=== PATIENT | female | born 1950 | race Caucasian/White ===

== ENCOUNTER → 2018-12-09 | Outpatient (CLI) | payer MEDICARE ==
[2018-12-09 11:23] LABS: Basophils # (A) 0.1 k/uL (0-0.2); Basophils % (A) 1 %; Eosinophils # (A) 0.2 k/uL (0-0.7); Eosinophils % (A) 4 %; HCT 45.7 % (34.0-46.0); HGB 14.4 gm/dL (11.4-16.0); Lymphocytes # (A) 2.3 k/uL (1.0-4.8); Lymphocytes % (A) 34 %; MCH 28.1 pg (25.0-35.0); MCHC 31.4 g/dL (31.0-37.0); MCV 89.7 fL (80.0-100.0); Mean Platelet Volume 6.3; Monocytes # (A) 0.3 k/uL (0-1.0); Monocytes % (A) 5 %; Neutrophils # (A) 3.7 k/uL (1.3-7.7); Neutrophils % (A) 55 %; Platelet Count 357 k/uL (150-450); WBC 6.7 k/uL (3.8-10.6)
[2018-12-09 18:34] LABS: CA27.29 Breast Ca Marker 7.3 U/mL (0.0-38.5)
[2018-12-10 09:13] LABS: Potassium 5.5
[2018-12-10 09:14] LABS: Anion Gap 7.6; Carbon Dioxide 26.4
[2018-12-10 09:35] LABS: Calcium 10.6
[2018-12-10 09:36] LABS: Albumin 4.9; Globulin 2.1
[2018-12-10 09:37] LABS: Albumin/Globulin Ratio 2.33
[2018-12-10 09:39] LABS: Total Bilirubin 0.3
== END | disposition home or self-care (01) ==
LOC: LABWHC1 10:09
PROVIDERS: ATTEND Internal Medicine Hematology & Oncology
DX: C50.211 Malignant neoplasm of upper-inner quadrant of right female breast (principal); C50.411 Malignant neoplasm of upper-outer quadrant of right female breast
CPT/HCPCS: 36415; 80053; 85025; 86300

== ENCOUNTER 2022-09-21 12:48 | Emergency (ER) | payer MEDICARE ==
[2022-09-21 13:39] LABS: Basophils # (A) 0.1 k/uL (0-0.2); Basophils % (A) 1 %; Eosinophils # (A) 0.4 k/uL (0-0.7); Eosinophils % (A) 5 %; HCT 42.4 % (34.0-46.0); HGB 14.1 gm/dL (11.4-16.0); Lymphocytes # (A) 2.4 k/uL (1.0-4.8); Lymphocytes % (A) 31 %; MCH 29.5 pg (25.0-35.0); MCHC 33.2 g/dL (31.0-37.0); MCV 88.6 fL (80.0-100.0); Mean Platelet Volume 7.9; Monocytes # (A) 0.4 k/uL (0-1.0); Monocytes % (A) 6 %; Neutrophils # (A) 4.2 k/uL (1.3-7.7); Neutrophils % (A) 55 %; Platelet Count 373 k/uL (150-450); RBC 4.78 m/uL (3.80-5.40); RDW 13.4 % (11.5-15.5); WBC 7.6 k/uL (3.8-10.6)
[2022-09-21 13:44] LABS: Albumin 4.5 g/dL (3.5-5.0); Calcium 9.5 mg/dL (8.4-10.2); Potassium 4.7 mmol/L (3.5-5.1); Total Bilirubin 0.8 mg/dL (0.2-1.3); Total Protein 7.2 g/dL (6.3-8.2)
--- NOTE | 2022-09-21 13:48 | XR ---
EXAMINATION TYPE: XR chest 2V DATE OF EXAM: 09/21/2022 COMPARISON: NONE HISTORY: Shortness of breath TECHNIQUE: Frontal and lateral views of the chest are obtained. FINDINGS: Scattered senescent parenchymal changes noted. Hyperinflation compatible with COPD. No evidence for infiltrate. No evidence for atelectasis. Heart size is stable. Right paratracheal soft tissue density could reflect a thyroid mass, ectatic vasculature however unde rlying pulmonary mass is not excluded. CT chest can be obtained on a nonemergent basis. No evidence for hilar prominence. Degenerative changes dorsal spine. IMPRESSION: 1. Right paratracheal soft tissue density could reflect a thyroid mass or ectatic vasculature however underlying pulmonary mass is not excluded. CT chest can be obtained on a nonemergent basis.
--- NOTE | 2022-09-21 13:57 | ED ---
General Adult HPI - General Chief complaint: Chest Pain Stated complaint: abn EKG, chest discomfort Time Seen by Provider: 09/21/22 13:10 Source: patient, family, RN notes reviewed, old records reviewed Mode of arrival: wheelchair Limitations: no limitations - History of Present Illness Initial comments: This is a 71-year-old female with a past medical history significant for diabetes migraines and gastric reflux. Patient states she is here today because the urgent care center in. Patient states she has been nauseated just about every day for the last 3 weeks she states the nausea comes on when she gets very sweaty and occasionally lightheaded. Patient denies any chest pain to me even on the triage note mentions chest pain I asked the patient at least 3 times she denies any chest pain any shortness of breath any palpitations. Patient denies any recent fever chills or cough. Patient states sometimes nausea gets so bad she does vomit but not a lot. Patient denies any diarrhea. Patient denies any abdominal pain. Patient states sometimes when she gets gastric reflux she does get nauseated but this is so consistent she was worried about it so she went to the urgent care. Patient currently has no nausea - Related Data Previous Rx's Medication Instructions Recorded Ondansetron [Zofran] 4 mg PO Q8HR PRN #10 tab 09/21/22 Allergies Allergy/AdvReac Type Severity Reaction Status Date / Time Sulfa (Sulfonamide Allergy Rash/Hives Verified 09/21/22 13:00 Antibiotics) Review of Systems ROS Statement: Those systems with pertinent positive or pertinent negative responses have been documented in the HPI. ROS Other: All systems not noted in ROS Statement are negative. Past Medical History Past Medical History: Asthma, Cancer, Diabetes Mellitus Additional Past Medical History / Comment(s): barretts esophagus, migraines History of Any Multi-Drug Resistant Organisms: None Reported Past Surgical History: Section, Cholecystectomy Additional Past Surgical History / Comment(s): right masectomy Past Psychological History: No Psychological Hx Reported Smoking Status: Former smoker Past Alcohol Use History: None Reported Past Drug Use History: None Reported General Exam - General Exam Comments Initial Comments: GENERAL: Patient is well-developed and well-nourished. Patient is nontoxic and well- hydrated and is in mild distress. ENT: Neck is soft and supple. No significant lymphadenopathy is noted. Oropharynx is clear. Moist mucous membranes. Neck has full range of motion without eliciting any pain. EYES: The sclera were anicteric and conjunctiva were pink and moist. Extraocular movements were intact and pupils were equal round and reactive to light. Eyelids were unremarkable. PULMONARY: Unlabored respirations. Good breath sounds bilaterally. No audible rales rhonchi or wheezing was noted. CARDIOVASCULAR: There is a regular rate and rhythm without any murmurs gallops or rubs. ABDOMEN: Soft and nontender with normal bowel sounds. SKIN: Skin is clear with no lesions or rashes and otherwise unremarkable. NEUROLOGIC: Patient is alert and oriented x3. Cranial nerves II through XII are grossly intact. Motor and sensory are also intact. Normal speech, volume and content. Symmetrical smile. MUSCULOSKELETAL: Normal extremities with adequate strength and full range of motion. No lower extremity swelling or edema. No calf tenderness. LYMPHATICS: No significant lymphadenopathy is noted PSYCHIATRIC: Normal psychiatric evaluation. Limitations: no limitations Course Vital Signs 09/21/22 09/21/22 09/21/22 12:55 12:59 14:52 Temperature 98 F Pulse Rate 66 60 75 Respiratory 16 18 18 Rate Blood Pressure 194/83 145/90 160/81 O2 Sat by Pulse 99 100 96 Oximetry Medical Decision Making - Medical Decision Making EKG is interpreted by me. EKG shows sinus bradycardia 58 bpm AK interval 266 dresses 84 QT interval 02/01/1970 QTC is 424. Patient's EKG shows no ST segment elevation or depression. Chest x-ray is interpreted by me. Chest x-ray showed a soft tissue area up and the thyroid region which I informed the patient of and she will follow supple to palpation. Patient's magnesium was slightly low I gave the patient some magnesium in the emergency department. Patient also received Zofran because she became nauseous and the emergency department. - Lab Data Result diagrams: 09/21/22 13:26 09/21/22 13:26 Lab Results 09/21/22 09/21/22 09/21/22 Range/Units 13:26 13:26 13:26 WBC 7.6 (3.8-10.6) k/uL RBC 4.78 (3.80-5.40) m/uL Hgb 14.1 (11.4-16.0) gm/dL Hct 42.4 (34.0-46.0) % MCV 88.6 (80.0-100.0) fL MCH 29.5 (25.0-35.0) pg MCHC 33.2 (31.0-37.0) g/dL RDW 13.4 (11.5-15.5) % Plt Count 373 (150-450) k/uL MPV 7.9 Neutrophils % 55 % Lymphocytes % 31 % Monocytes % 6 % Eosinophils % 5 % Basophils % 1 % Neutrophils # 4.2 (1.3-7.7) k/uL Lymphocytes # 2.4 (1.0-4.8) k/uL Monocytes # 0.4 (0-1.0) k/uL Eosinophils # 0.4 (0-0.7) k/uL Basophils # 0.1 (0-0.2) k/uL PT 10.3 (9.0-12.0) sec INR 1.0 (<1.2) APTT 22.9 (22.0-30.0) sec Sodium 138 (137-145) mmol/L Potassium 4.7 (3.5-5.1) mmol/L Chloride 107 (98-107) mmol/L Carbon Dioxide 21 L (22-30) mmol/L Anion Gap 10 mmol/L BUN 21 H (7-17) mg/dL Creatinine 0.88 (0.52-1.04) mg/dL Est GFR (CKD-EPI)AfAm 78 (>60 ml/min/1.73 sqM) Est GFR (CKD-EPI)NonAf 68 (>60 ml/min/1.73 sqM) Glucose 135 H (74-99) mg/dL Calcium 9.5 (8.4-10.2) mg/dL Magnesium (1.6-2.3) mg/dL Total Bilirubin 0.8 (0.2-1.3) mg/dL AST 22 (14-36) U/L ALT 28 (4-34) U/L Alkaline Phosphatase 80 (38-126) U/L Troponin I (0.000-0.034) ng/mL NT-Pro-B Natriuret Pep pg/mL Total Protein 7.2 (6.3-8.2) g/dL Albumin 4.5 (3.5-5.0) g/dL Amylase (30-110) U/L Lipase (23-300) U/L 09/21/22 09/21/22 09/21/22 Range/Units 13:26 13:26 13:26 WBC (3.8-10.6) k/uL RBC (3.80-5.40) m/uL Hgb (11.4-16.0) gm/dL Hct (34.0-46.0) % MCV (80.0-100.0) fL MCH (25.0-35.0) pg MCHC (31.0-37.0) g/dL RDW (11.5-15.5) % Plt Count (150-450) k/uL MPV Neutrophils % % Lymphocytes % % Monocytes % % Eosinophils % % Basophils % % Neutrophils # (1.3-7.7) k/uL Lymphocytes # (1.0-4.8) k/uL Monocytes # (0-1.0) k/uL Eosinophils # (0-0.7) k/uL Basophils # (0-0.2) k/uL PT (9.0-12.0) sec INR (<1.2) APTT (22.0-30.0) sec Sodium (137-145) mmol/L Potassium (3.5-5.1) mmol/L Chloride (98-107) mmol/L Carbon Dioxide (22-30) mmol/L Anion Gap mmol/L BUN (7-17) mg/dL Creatinine (0.52-1.04) mg/dL Est GFR (CKD-EPI)AfAm (>60 ml/min/1.73 sqM) Est GFR (CKD-EPI)NonAf (>60 ml/min/1.73 sqM) Glucose (74-99) mg/dL Calcium (8.4-10.2) mg/dL Magnesium 1.4 L (1.6-2.3) mg/dL Total Bilirubin (0.2-1.3) mg/dL AST (14-36) U/L ALT (4-34) U/L Alkaline Phosphatase (38-126) U/L Troponin I <0.012 (0.000-0.034) ng/mL NT-Pro-B Natriuret Pep 124 pg/mL Total Protein (6.3-8.2) g/dL Albumin (3.5-5.0) g/dL Amylase 45 (30-110) U/L Lipase 77 (23-300) U/L Disposition Clinical Impression: Nausea, Hypomagnesemia, Thyroid mass Disposition: HOME SELF-CARE Instructions (If sedation given, give patient instructions): Hypomagnesemia (ED) Additional Instructions: Patient should take magnesium [id number] and then follow up his primary medical care doctor. Patient's follow-up medical care doctor for thyroid mass. The patient should take Zofran as prescribed Prescriptions: Ondansetron [Zofran] 4 mg PO Q8HR PRN #10 tab PRN Reason: Nausea Is patient prescribed a controlled substance at d/c from ED?: No Referrals: Mark Adams MD [Primary Care Provider] - 1-2 days Time of Disposition: 15:47
[2022-09-21 14:04] LABS: Partial Thromboplastin Time 22.9 sec (22.0-30.0); Prothrombin Time 10.3 sec (9.0-12.0)
[2022-09-21 14:08] LABS: Magnesium 1.4 mg/dL (1.6-2.3)
[2022-09-21] MEDS ORDERED: MAGNESIUM OXIDE 400 MG TAB PO STA (15:34)
[2022-09-21] MEDS ORDERED: ONDANSETRON ODT 4 MG TAB PO STA (15:44)
[2022-09-21 16:55] VITALS: BP 159/68; PULSE 73; RESP 16; TEMP 98.7
== END 2022-09-21 17:08 | disposition home or self-care (01) ==
LOC: EC 12:48
DX: R11.0 Nausea (principal); E83.42 Hypomagnesemia; E07.89 Other specified disorders of thyroid; E11.9 Type 2 diabetes mellitus without complications; J45.909 Unspecified asthma, uncomplicated; Z87.891 Personal history of nicotine dependence; Z88.2 Allergy status to sulfonamides; Z79.899 Other long term (current) drug therapy
CPT/HCPCS: 36415; 71046; 80053; 82150; 83690; 83735; 83880; 84443; 84484; 85025; 85610; 85730; 93005; 99285

== ENCOUNTER → 2022-10-18 | Outpatient (CLI) | payer MEDICARE ==
--- NOTE | 2022-10-18 14:39 | CT ---
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 Subsequent CT scanning of the chest without contrast. Mitchell l/sagittal reconstructions performed. CT DLP: 417 (accession [id number]), 420 (accession [id number]) mGycm Automated exposure control for dose reduction was used. FINDINGS: NECK: Trace mucosal thickening floors of the maxillary sinuses. Visualized orbits and globes and mastoid ai r cells appear clear. Slight leftward nasal septal deviation. Prominent dental amalgam artifact limiting evaluation. Nasopharynx appears clear narrowing of the junction of the nasopharynx and oropharynx likely due to e levation of the soft palate. Bilateral calcifications in the palatine tonsils measuring up to 6 mm li mitch reflects sequela of prior infection. Asymmetric left lingual tonsillar hypertrophy. Epiglottis and prevertebral soft tissues are satisfactory. Glottic and subglottic structures as well as the tracheal column appear clear. The thyroid, submandibular, and parotid glands are satisfactory. Scattered nonenlarged lymph nodes in the upper neck. No cervical lymphadenopathy seen. Moderate degenerative disc disease mid to lower cervical spine. CHEST: Status post right mastectomy with a retropectoral right breast implant/reconstruction. Additional darrell gical clips in the right axilla. Heart normal size. Mitral annular calcifications are noted. Some scattered LAD coronary artery calcif ications are noted. Mild aneurysm ascending aorta 4.0 cm. Mild atherosclerotic arch calcifications with conventional arch vessel branching anatomy. Tortuous brachiocephalic artery and proximal right subclavian artery likely accounts for the right pa ratracheal soft tissue prominence seen on radiograph. No thoracic lymphadenopathy is seen. Strandy scarring or atelectasis anterior right midlung and posterior lung bases. No consolidation or pleural effusion. No suspicious pulmonary nodule or mass is seen. A 4 mm right middle lobe pulmonary nodule, axial image 34 and be reassessed at a 12 month follow-up. There is a small to moderate-sized hiatal hernia. Numerous small fat density masses of the right kid kya measuring up to 1.4 cm suggesting small AML's. Cholecystectomy clips. Moderate stool burden. Bones: [facility] mid and lower thoracic spine. Accentuated mid thoracic kyphosis. No osseous destructive p rocess. IMPRESSION: NECK: 1. NARROWING AT THE JUNCTION OF THE NASOPHARYNX AND OROPHARYNX LIKELY DUE TO ELEVATION OF THE SOFT PA LATE. 2. PUNCTATE CALCIFICATIONS/TONSILLOLITHS WITHIN THE BILATERAL PALATINE TONSILS MEASURING UP TO 6 MM S UGGESTS SEQUELA OF PRIOR INFECTION. 3. ASYMMETRIC HYPERTROPHY OF THE LEFT LINGUAL TONSILS. CONSIDER DIRECT INSPECTION. THE NASOPHARYNGEAL AND OROPHARYNGEAL JUNCTION CAN ALSO BE ASSESSED AT THAT TIME. CHEST: 4. Prior right breast reconstruction and right axillary node dissection. 5. Mild aneurysm ascending aorta at 4.0 cm. Tortuous brachiocephalic and proximal right subclavian ar nieves likely accounts for the right paratracheal soft tissue prominence seen on prior chest x-ray. No suspicious mediastinal mass or lymphadenopathy seen. 6. Some minimal scattered strandy scarring or atelectasis in the lungs. A 4 mm right middle lobe pulm onary nodule can be reassessed at a 12 month follow-up CT. 7. Small to moderate sized hiatal hernia. 8. A number of small fat density cortical lesions of the right kidney measuring up to 1.4 cm suggesti ng small benign AML's.
== END | disposition home or self-care (01) ==
LOC: RADCTMAIN 12:37
PROVIDERS: ATTEND Family Medicine
DX: I71.21 Aneurysm of the ascending aorta, without rupture (principal); K44.9 Diaphragmatic hernia without obstruction or gangrene; J39.2 Other diseases of pharynx; J35.1 Hypertrophy of tonsils; N28.89 Other specified disorders of kidney and ureter; E04.9 Nontoxic goiter, unspecified; R91.1 Solitary pulmonary nodule; R63.4 Abnormal weight loss; Z98.890 Other specified postprocedural states
CPT/HCPCS: 82565; 84520; 70491; 71250; 36415; Q9967